=== PATIENT | male | born 1980 | race Caucasian/White ===

== ENCOUNTER 2023-04-13 00:08 | Emergency (ER) | payer OTHER ==
[2023-04-13 00:20] VITALS: BP 147/78; PULSE 81; RESP 18; TEMP 98.2; BMI 30.5
[2023-04-13] MEDS ORDERED: LIDOCAINE HCL 2% JELLY 11 ML TP ONE (01:09)
[2023-04-13] MEDS ORDERED: MINERAL OIL ENEMA 133 ML ENEMA PR ONE (01:52)
== END 2023-04-13 04:01 | disposition home or self-care (01) ==
LOC: JER 00:08
PROC: 0T9B70Z Drainage of Bladder with Drainage Device, Via Natural or Artificial Opening (ICD-10-PCS; principal; 2023-04-13)
DX: R10.30 Lower abdominal pain, unspecified (principal); K59.03 Drug induced constipation; R33.9 Retention of urine, unspecified
CPT/HCPCS: 99283-25